=== PATIENT | female | born 1965 | race Caucasian/White ===

== ENCOUNTER 2017-06-22 10:47 | Emergency (ER) | payer MEDICAID ==
[~2017-06-22] VITALS: Ht 154.9 cm; Wt 98.9 kg
[2017-06-22 10:54] VITALS: BP_SYST 151
[2017-06-22 11:27] LABS: BILIRUBIN,URINE NEGATIVE (NEGATIVE); BLOOD, URINE 1+ (NEGATIVE); CLARITY/URINE CLEAR (CLEAR); COLOR,URINE YELLOW (YELLOW); GLUCOSE,URINE NEGATIVE (NEGATIVE); KETONES,URINE NEGATIVE (NEGATIVE); LEUKOCYTE ESTERASE ,URINE NEGATIVE (NEGATIVE); NITRITE, URINE NEGATIVE (NEGATIVE); PROTEIN URINE NEGATIVE (NEGATIVE); UROBILINOGEN,URINE 0.2 (0.2-1.0)
[2017-06-22 11:32] LABS: BACTERIA,URINE FEW /HPF (None Seen); MUCUS,URINE None Seen /LPF (None Seen); RBC,URINE 0-3 /HPF (0-3); WBC,URINE 0-3 /HPF (0-3)
[2017-06-22 12:17] VITALS: BP_SYST 145
== END 2017-06-22 12:06 | disposition home or self-care (01) ==
LOC: SED 10:47
DX: R31.9 Hematuria, unspecified (principal); R03.0 Elevated blood-pressure reading, without diagnosis of hypertension
CPT/HCPCS: 81000-TC; 81025; 99285